=== PATIENT | female | born 2000 | race Caucasian/White ===

== ENCOUNTER → 2023-07-19 11:23 | Outpatient (BNVA) | payer MEDICAID, SELFPAY | PROVIDERS: PCP Family Medicine; Visit Provider Internal Medicine | DX: R76.8 Other specified abnormal immunological findings in serum (principal); L40.9 Psoriasis, unspecified | CPT/HCPCS: 36415; 72100; 72202; 73120; 82550; 82607; 82728; 83516; 83520; 83540; 86003; 86008; 86160; 86162; 86235; 86255; 86376; 86704; 86803; 87340; 99204 ==

== ENCOUNTER → 2023-08-18 11:26 | Outpatient (BNVA) | payer MEDICAID, SELFPAY | PROVIDERS: PCP Family Medicine; Visit Provider Internal Medicine | DX: R76.8 Other specified abnormal immunological findings in serum (principal); M25.50 Pain in unspecified joint; M54.50 Low back pain, unspecified; R53.83 Other fatigue | CPT/HCPCS: 99214 ==